=== PATIENT | male | born 1960 | race Caucasian/White ===

== ENCOUNTER 2021-04-03 08:03 | Outpatient (CLI) | payer BC | END 2021-04-03 08:04 | disposition home or self-care (01) | LOC: CSHCT 08:03 | PROVIDERS: ATTEND Internal Medicine Nephrology | DX: E11.9 Type 2 diabetes mellitus without complications (principal); R97.20 Elevated prostate specific antigen [PSA]; C61 Malignant neoplasm of prostate; G47.9 Sleep disorder, unspecified; I48.91 Unspecified atrial fibrillation; Z86.79 Personal history of other diseases of the circulatory system; M19.90 Unspecified osteoarthritis, unspecified site; I51.89 Other ill-defined heart diseases; E87.6 Hypokalemia; E78.5 Hyperlipidemia, unspecified; N40.0 Benign prostatic hyperplasia without lower urinary tract symptoms; K21.9 Gastro-esophageal reflux disease without esophagitis; D64.9 Anemia, unspecified; E55.9 Vitamin D deficiency, unspecified; Z87.19 Personal history of other diseases of the digestive system | CPT/HCPCS: 74170; 82565 ==

== ENCOUNTER 2021-07-08 15:21 | Outpatient (CLI) | payer BC | END 2021-07-08 15:22 | disposition home or self-care (01) | LOC: CSHRAD 15:21 | PROVIDERS: ATTEND Internal Medicine Rheumatology | DX: M17.12 Unilateral primary osteoarthritis, left knee (principal) ==

== ENCOUNTER 2023-10-27 07:15 | Observation (INO) | payer BC ==
[2023-10-27 08:08] LABS: #Monocytes 0.8 10x3/uL (0.0-1.1); #Neutrophils 4.4 10x3/uL (1.5-8.4); %Basophils 0.2 % (0.0-2.0); %Eosinophils 0.2 % (0.0-6.0); %Lymphocytes 12.6 % (18.0-47.0); %Monocytes 12.7 % (0.0-10.0); %Neutrophils 74.1 % (40.0-75.0); Hematocrit 39.3 % (38.8-50.0); Hemoglobin 13.2 g/dL (13.5-17.5); Mean Corpuscular HGB CONC 33.6 g/dL (32.0-36.0); Mean Corpuscular Hemoglobin 30.3 pg (27.0-33.0); Mean Corpuscular Volume 90.3 fl (81.2-95.1); Mean Platelet Volume 9.6 fl (7.4-10.4); Platelet Count 162 10x3/uL (150-450); RBC Distribution Width 14.8 % (11.5-14.5); Red Blood Cell (RBC) Count 4.35 10x6/uL (4.32-5.72)
[2023-10-27 08:23] LABS: ALT (SGPT) 34 U/L (8-55); AST (SGOT) 35 U/L (5-34); Albumin 4.5 g/dL (3.4-4.8); Alkaline Phosphatase 58 U/L (40-110); Anion Gap 23 mmol/L (10-20); BUN (Urea Nitrogen) 10 mg/dL (8.4-25.7); Bilirubin, Total 0.7 mg/dL (0.2-1.2); Calc. Creatinine Clearance 0 mL/min (70-130); Calcium 8.3 mg/dL (7.8-10.44); Carbon Dioxide 21 mmol/L (23-31); Chloride 100 mmol/L (98-107); Estimated GFR 75; Globulin 1.8 g/dL (2.4-3.5); Glucose 116 mg/dL (80-115); Potassium 2.8 mmol/L (3.5-5.1); Protein, Total 6.3 g/dL (5.8-8.1); Sodium 141 mmol/L (136-145)
[2023-10-27 08:29] LABS: Troponin I 0.018 ng/mL (< 0.028)
[2023-10-27] MEDS ORDERED: Ketorolac Tromethamine 30 MG (1 mL) VIAL ONE (08:39)
[2023-10-27] MEDS ORDERED: Dexamethasone 10 MG/ML VIAL ONE (08:39)
[2023-10-27] MEDS ORDERED: Magnesium 2 GM/50 ML BAG (IN WATER) ONE (08:39)
[2023-10-27] MEDS ORDERED: Potassium Chloride 20 MEQ TAB ONE (08:40)
[2023-10-27 08:47] LABS: Actual Bicarbonate (HCO3v) 21.7 mEq/L (22-28); Analyzer IN Cardio CS ER; Base Excess -2.5 mEq/L (-2 - +2); Calcium, Ionized (venous) 1.04 mmol/L (1.16-1.32); Chloride (VBG) 98 mmol/L (98-106); Critical Notified By: ASANCHEZ RT; Hematocrit-VBG 38 % (42.0-52.0); Hemoglobin (Hb) 12.9 g/dL (12.6-17.4); Potassium (VBG) 2.84 mmol/L (3.70-5.30); Puncture Site Other Site; RapidComm Collect By LAB.CB1; Sodium 138 mmol/L (133-146); pH (venous) 7.404 (7.32-7.43)
[2023-10-27 08:58] LABS: Magnesium 1.9 mg/dL (1.6-2.6)
[2023-10-27 09:34] LABS: Influenza A by NAA Not Detected (NotDetected); Influenza B by NAA Not Detected (NotDetected); SARS-CoV-2 NAA Rapid Test DETECTED (NotDetected)
[2023-10-27] MEDS ORDERED: Dextrose 5% in Water 1,000 ML IV PRN (11:00)
[2023-10-27] MEDS ORDERED: HumaLOG 300 UNITS/3 ML VIAL SC PRN ×2 (11:00)
[2023-10-27] MEDS ORDERED: Glucagon 1 MG/ML KIT IM PRN (11:00)
[2023-10-27] MEDS ORDERED: Dextrose 50% Abboject 50 ML SYRINGE SLOW IVP PRN (11:00)
[2023-10-27] MEDS ORDERED: Sodium Chloride 0.9% 1,000 ML IV SCH (11:15)
[2023-10-27] MEDS ORDERED: Insulin Regular 300 UNITS/3 ML VIAL SC PRN ×2 (11:17)
[2023-10-27 12:10] LABS: Bilirubin Neg (Negative); Blood, Urine Negative (Negative); Clarity Clear (Clear); Glucose, Urine (Dipstick) Normal (Negative); Ketone, Urine 150 mg/dL (Negative); Leukocyte Negative (Negative); Nitrite Negative (Negative); Protein, Urine (Dipstick) 15 mg/dl (Neg-Trace)
[2023-10-27 12:27] LABS: CAUTI Indications for Culture Pelvic or flank pain; RBC/HPF 0-3 HPF (0-3); WBC/HPF None Seen HPF (0-3)
[2023-10-27 12:28] LABS: Bacteria/HPF None Seen HPF (None Seen); Squamous Epithelial 0-3 HPF (0-3)
[2023-10-27 12:29] LABS: Urine Culture Reflex No No
[2023-10-27] MEDS ORDERED: Potassium Chloride 20 MEQ (100 mL) BAG ONE (17:44)
[2023-10-27] MEDS: Potassium Chloride 20 MEQ in Premix 1 BAG IVPB SCH ×2 (17:52→21:12)
[2023-10-27] MEDS: Sodium Chloride 0.9% 1,000 ML IV SCH (17:53)
[2023-10-27 17:57] VITALS: BMI 28.7
[2023-10-27] MEDS: Rosuvastatin 20 MG TAB PO SCH (21:15)
[2023-10-27] MEDS: Multivit, Therapeutic 1 TAB PO SCH (21:15)
[2023-10-27] MEDS: Carvedilol 6.25 MG TAB PO SCH (21:15)
[2023-10-27] MEDS: Loratadine 10 MG TAB PO SCH (21:15)
[2023-10-27] MEDS: Fluticasone Propionate Nasal Spray 16 gm Bottle NASAL SCH (21:36)
[2023-10-27] MEDS: Sacubitril 49 MG/Valsartan 51 MG TABLET PO SCH (21:36)
[2023-10-28 04:12] LABS: #Monocytes 0.8 10x3/uL (0.0-1.1); #Neutrophils 3.7 10x3/uL (1.5-8.4); %Lymphocytes 16.9 % (18.0-47.0); %Monocytes 14.3 % (0.0-10.0); %Neutrophils 68.6 % (40.0-75.0); Hematocrit 34.7 % (38.8-50.0); Hemoglobin 11.6 g/dL (13.5-17.5); Mean Corpuscular HGB CONC 33.4 g/dL (32.0-36.0); Mean Corpuscular Hemoglobin 30.4 pg (27.0-33.0); Mean Corpuscular Volume 91.1 fl (81.2-95.1); Mean Platelet Volume 10.2 fl (7.4-10.4); Platelet Count 176 10x3/uL (150-450); RBC Distribution Width 14.8 % (11.5-14.5); Red Blood Cell (RBC) Count 3.81 10x6/uL (4.32-5.72); White Blood Cell (WBC) Count 5.3 10x3/uL (3.5-10.5)
[2023-10-28 04:27] LABS: Anion Gap 11 mmol/L (10-20); BUN (Urea Nitrogen) 13 mg/dL (8.4-25.7); Calc. Creatinine Clearance 138 mL/min (70-130); Calcium 8.4 mg/dL (7.8-10.44); Carbon Dioxide 27 mmol/L (23-31); Chloride 105 mmol/L (98-107); Estimated GFR 98; Glucose 145 mg/dL (80-115); Potassium 3.4 mmol/L (3.5-5.1); Sodium 140 mmol/L (136-145)
[2023-10-28] MEDS: Spironolactone 25 MG TAB PO SCH (08:24)
[2023-10-28] MEDS: Folic Acid 1 MG TAB PO SCH (08:24)
[2023-10-28] MEDS: Potassium Chloride 20 MEQ TAB PO SCH (08:24)
[2023-10-28] MEDS: Aspirin Chewable 81 MG TAB PO SCH (08:25)
[2023-10-28] MEDS: Polyethylene Glycol 3350 17 GM Packet PO SCH (08:25)
[2023-10-28] MEDS: Ezetimibe 10 MG TAB PO SCH (08:25)
[2023-10-28 08:37] VITALS: BP 120/73; TEMP 98
== END 2023-10-28 08:55 | disposition home or self-care (01) ==
LOC: CSHERS 07:15 → CSHERHOLD 10:40 → CSHTELE 18:47
PROVIDERS: ADMIT Family Medicine; ATTEND Family Medicine
DX: U07.1 COVID-19 (principal); J12.82 Pneumonia due to coronavirus disease 2019; E78.5 Hyperlipidemia, unspecified; I48.91 Unspecified atrial fibrillation; E11.10 Type 2 diabetes mellitus with ketoacidosis without coma; E87.6 Hypokalemia; I11.0 Hypertensive heart disease with heart failure; I50.9 Heart failure, unspecified; Z88.0 Allergy status to penicillin; Z79.82 Long term (current) use of aspirin; Z79.899 Other long term (current) drug therapy
CPT/HCPCS: 36415; 36416; 71045; 80048; 80053; 81001; 82010; 82805; 83735; 84484; 85025; 93005; 94762; 96365; 96366; 96375; 96376; G0378; J1100; J1885; J3475; J3480; J7050